=== PATIENT | male | born 1935 | race Caucasian/White ===

== ENCOUNTER → 2023-12-27 09:51 | Outpatient (CLI) | payer MEDICARE, OTHER, SELFPAY ==
--- NOTE | 2023-12-27 09:54 | DI.NM.S_ITS ---
PROCEDURE: NM BRITTANEY PERF SPECT REST & STR Rest and exercise myocardial perfusion SPECT with gated imaging and ejection fraction RADIOPHARMACEUTICAL: 10.7 mCi Tc-99m sestamibi IV at rest and 27.3 mCi Tc-99m sestamibi IV at peak exercise. A one day-protocol was performed. INDICATIONS: PAIN RT EXTREMITY/PVC/ABN EKG/NEWSOME TECHNIQUE: Radiopharmaceutical was injected at peak stress test, and also at rest. SPECT images were obtained. SPECT myocardial perfusion images were displayed in short axis, horizontal long axis, and vertical long axis views. Gated images were reviewed using [email or web address] software. COMPARISON: None. CARDIAC STRESS: A standard Herminio treadmill exercise tolerance test was performed by the patient under the supervision of an attending staff. The patient exercised for 7 minutes and 0 seconds; functional aerobic impairment (JANE) is -79%. Hemodynamic data: There is normal blood pressure and heart rate response to exercise stress. Patient achieved 94%of maximum predicted heart rate at peak exercise. Symptoms: Patient denied chest pain during exercise. EKG: No diagnostic EKG changes of ischemia; frequent PVCs at rest that improved significantly with exercise and came back during recovery. FINDINGS: Raw data: There is good myocardial labeling by radiotracer. No significant motion artifacts. Tmam-zn-fkjgh ratio is 0.36 (normal is less than 0.38 for sestamibi tracer, and less than 0.50 for thallium tracer). Left ventricle function: Gated images demonstrate normal left ventricle wall thickening. No segmental wall motion abnormality. No transient ischemic dilation; TID is 1.0 (normal less than 1.3). The left ventricle resting end-diastolic volume is 176 mL. Left ventricle stress ejection fraction is 61%; normal values are above 45%. Myocardial perfusion: There is normal distribution of activity in the left and right ventricular myocardium. No fixed or reversible perfusion defects. IMPRESSION: Low risk, normal treadmill nuclear stress test from inducible ischemia standpoint. 1) No perfusion evidence of ischemia or infarction. SSS 0. 2) Enlarged left ventricle (EDV 176cc at rest) with normal wall motion and normal systolic function (EF post stress 61%). 3) No diagnostic ST changes during exercise or recovery. 4) No angina during the study. 5) Outstanding exercise tolerance (7.8METs, Jane -79%). Target heart rate reached. Appropriate BP response to exercise. 6) No prior nuclear stress test available for comparison. Dictated by: Meredith Juárez MD on 12/28/2023 at 13:57 Approved by: Meredith Juárez MD on 12/28/2023 at 14:01
== END ==
LOC: NUCM 09:54
PROVIDERS: Referring Provider Internal Medicine Cardiovascular Disease; Visit Provider Internal Medicine Cardiovascular Disease
DX: M79.601 Pain in right arm (principal); I49.3 Ventricular premature depolarization; R94.31 Abnormal electrocardiogram [ECG] [EKG]; I25.10 Atherosclerotic heart disease of native coronary artery without angina pectoris; R06.09 Other forms of dyspnea
CPT/HCPCS: 78452; 93017; A9502